=== PATIENT | male | born 1965 | race Hispanic/Latino ===

== ENCOUNTER 2019-01-06 03:12 | Emergency (ER) | payer OTHER ==
[2019-01-06 03:20] VITALS: BMI 25.8
[2019-01-06 03:30] VITALS: RESP 16; TEMP 98.1
[2019-01-06] MEDS ORDERED: Alum-Mag Hydrox-Simethicone Susp (30 mL) PO STA (03:40)
[2019-01-06] MEDS ORDERED: Atrop/Hyosc/Scopal/PB Elixir (120 ml) PO STA (03:40)
[2019-01-06] MEDS ORDERED: Sodium Chloride 0.9% 1,000 ML IV STA (03:40)
--- NOTE | 2019-01-06 03:44 | ED PDOC ---
Arrival/HPI - General Chief Complaint: Abdominal Pain Time Seen by Provider: 01/06/19 03:13 Historian: Patient - History of Present Illness Narrative History of Present Illness (Text): 01/06/19 03:41 53 year old male, allergic to penicillin, with no significant past medical history, presents to the emergency department with lower abdominal pain, since 1 hour. Patient informs he feels pressure in his lower stomach. Patient informs he does feel some chills associated with symptoms. Patient informs he has urinated since symptom onset, but not moved his bowels. Patient also informs of some associated nausea, but no vomiting. Patient denies any fevers, headache, dizziness, chest pain, shortness of breath, cough, diaphoresis, diarrhea, back pain, neck pain, or any other complaint. Time/Duration: 1 hour Symptom Onset: Gradual Symptom Course: Unchanged Quality: Pressure Activities at Onset: Light Context: Home Past Medical History - Provider Review Nursing Documentation Reviewed: Yes - Pulmonary Hx Respiratory Disorders: Yes Hx Asthma: Yes - Gastrointestinal Hx Gastrointestinal Disorders: Yes Other/Comment: inguinal hernia (double) - repaired 2014 - Psychiatric Hx Psychophysiologic Disorder: No Hx Substance Use: No - Surgical History Other/Comment: inguinal hernia repair 2014 - Anesthesia Hx Anesthesia: Yes Family/Social History - Physician Review Nursing Documentation Reviewed: Yes Family/Social History: No Known Family HX Smoking Status: Never Smoked Hx Alcohol Use: No Hx Substance Use: No Allergies/Home Meds Allergies/Adverse Reactions: Allergies Penicillins Allergy (Intermediate, Verified 01/06/19 03:20) URTICARIA Review of Systems - Physician Review All systems were reviewed & negative as marked: Yes - Review of Systems Constitutional: Other (Chills). absent: Fevers Respiratory: absent: SOB, Cough Cardiovascular: absent: Chest Pain Gastrointestinal: Abdominal Pain, Nausea. absent: Diarrhea, Vomiting Musculoskeletal: absent: Back Pain, Neck Pain Neurological: absent: Headache, Dizziness Endocrine: absent: Diaphoresis Physical Exam Vital Signs Reviewed: Yes Vital Signs Temp Pulse Resp BP Pulse Ox 01/06/19 03:22 98.1 F 59 L 16 129/76 100 Temperature: Afebrile Blood Pressure: Normal Pulse: Regular Respiratory Rate: Normal Appearance: Positive for: Well-Appearing, Non-Toxic, Comfortable Pain Distress: None Mental Status: Positive for: Alert and Oriented X 3 - Systems Exam Head: Present: Atraumatic, Normocephalic Pupils: Present: PERRL Extroacular Muscles: Present: EOMI Conjunctiva: Present: Normal Mouth: Present: Moist Mucous Membranes Neck: Present: Normal Range of Motion Respiratory/Chest: Present: Clear to Auscultation, Good Air Exchange. No: Respiratory Distress, Accessory Muscle Use Cardiovascular: Present: Regular Rate and Rhythm, Normal S1, S2. No: Murmurs Abdomen: Present: Tenderness (Suprapubic tenderness, with pressure sensation). No: Distention, Peritoneal Signs Back: Present: Normal Inspection Upper Extremity: Present: Normal Inspection. No: Cyanosis, Edema Lower Extremity: Present: Normal Inspection. No: Edema Neurological: Present: GCS=15, CN II-XII Intact, Speech Normal Skin: Present: Warm, Dry, Normal Color. No: Rashes Psychiatric: Present: Alert, Oriented x 3, Normal Insight, Normal Concentration Medical Decision Making ED Course and Treatment: 01/06/19 03:47 Impression: 53 year old male presents with abdominal pain. Plan: -- CT ABD & Pelvis -- Labs -- Maalox -- Donnaal -- Toradol -- Zofran -- Urine culture -- Urinalysis -- Reassess and disposition Prior Visits: Notes and results from previous visits were reviewed. Progress Notes: 01/06/19 04:56 Labs reviewed with elevated lipase of 424. No leukocytosis noted. Pending CT a/p results. 01/06/19 05:42 UA reveals trace esterases. Ciprofloxacin ordered. Patient reevaluated and feels better. CT a/p reveals moderate constipation and 3.5mm obstructing stone at the UPJ. Patient desires to go home. He is updated on lab and image findings and advised to follow up with a urologist. Opportunity for questions given and answered. Scripts given. He is stable for discharge. - Lab Interpretations Lab Results: 01/06/19 04:00 01/06/19 04:00 Lab Results 01/06/19 04:00: Sodium 140, Potassium 3.8, Chloride 100, Carbon Dioxide 30, Anion Gap 14, BUN 12, Creatinine 1.0, Est GFR ( Amer) > 60, Est GFR (Non- Af Amer) > 60, Random Glucose 174 H, Calcium 9.6, Magnesium 1.8, Total Bilirubin 0.5, AST 25, ALT 20, Alkaline Phosphatase 91, Total Protein 7.1, Albumin 4.1, Globulin 3.0, Albumin/Globulin Ratio 1.4, Lipase 424 H 01/06/19 04:00: PT 12.2, INR 1.10, APTT 30.9 01/06/19 04:00: WBC 9.5, RBC 4.90, Hgb 14.5, Hct 43.0, MCV 87.8, MCH 29.6, MCHC 33.7, RDW 13.3, Plt Count 185, MPV 9.9, Neut % (Auto) 80.9 H, Lymph % (Auto) 13.3 L, [place] % (Auto) 3.7, Eos % (Auto) 1.8, Baso % (Auto) 0.3, Lymph # (Auto) 1.3, [place] # (Auto) 0.4, Eos # (Auto) 0.2, Baso # (Auto) 0.03, Absolute Neuts (auto) 7.68 H I have reviewed the lab results: Yes - RAD Interpretation Narrative RAD Interpretations (Text): 01/06/19 05:58 CT SCAN OF THE ABDOMEN AND PELVIS WITH CONTRAST. CLINICAL HISTORY: Abdominal pain. TECHNIQUE: Multiple axial and coronal CT images were obtained through the abdomen and pelvis after administration of intravenous contrast material. COMMENTS: 3.5 mm obstructing stone of the right ureterovesical junction. Mild right hydroureteronephrosis. Diffuse thickening of the bladder which Secondary to underdistention, mild cystitis versus chronic bladder outlet obstruction changes. Correlation with urinalysis is suggested. Moderate prostatomegaly. Mild fullness of the left collecting system. Uncomplicated colonic diverticulosis. Moderate constipation. Fluid-filled distended stomach, probably gastroparesis. Diffuse thickening and enhancement of the wall of the gallbladder. Sonographic evaluation is suggested. The liver is of uniform attenuation without mass or defect. There is no intra or extrahepatic biliary ductal dilatation. The spleen is normal. The pancreas is of normal contour and attenuation characteristics. There is no evidence of adrenal mass. Both kidneys demonstrate prompt and equal nephrograms. The kidneys are normal in size, shape and configuration. There is no evidence of renal or ureteral mass. No evidence for appendicitis. There is no bowel wall thickening. No evidence for small or large bowel obstruction. There is no evidence of abdominal ascites or lymphadenopathy. There is no evidence of intrinsic or extrinsic bladder mass. There is no pelvic ascites or lymphadenopathy. Images of the lung bases show no evidence of pleural or parenchymal mass. There are no pleural effusions. The bony structures are free of lytic or blastic lesions. IMPRESSION: 3.5 mm obstructing stone of the right ureterovesical junction. Mild right hydroureteronephrosis. Diffuse thickening of the bladder which Secondary to underdistention, mild cystitis versus chronic bladder outlet obstruction changes. Correlation with urinalysis is suggested. Moderate prostatomegaly. Mild fullness of the left collecting system. Uncomplicated colonic diverticulosis. Moderate constipation. Fluid-filled distended stomach, probably gastroparesis. Diffuse thickening and enhancement of the wall of the gallbladder. Sonographic evaluation is suggested. 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 Current Medication Orders: 01/06/19 04:59 Discontinued Medications Al Hydrox/Mg Hydrox/Simethicone (Maalox Plus 30 Ml) 30 ml PO STAT STA Stop: 01/06/19 03:41 Last Admin: 01/06/19 04:00 Dose: 30 ml Belladonna/Phenobarbital ( Elixir) 10 ml PO STAT STA Stop: 01/06/19 03:41 Last Admin: 01/06/19 04:08 Dose: 10 ml Sodium Chloride (Sodium Chloride 0.9%) 1,000 mls @ 1,000 mls/hr IV .Q1H STA Stop: 01/06/19 04:39 Last Admin: 01/06/19 03:55 Dose: 1,000 mls/hr eMAR Start Stop Document 01/06/19 03:55 KV (Rec: 01/06/19 04:00 KV [id number]) Intravenous Solution Start Date 01/06/19 Start Time 03:55 Ketorolac Tromethamine (Toradol) 30 mg IVP STAT STA Stop: 01/06/19 03:41 Last Admin: 01/06/19 04:01 Dose: 30 mg MAR Pain Assessment Document 01/06/19 04:01 KV (Rec: 01/06/19 04:01 KV [id number]) Pain Reassessment Is this a pain reassessment? No Location Left, Right or Bilateral Bilateral Upper or Lower Lower Pain Location Body Site Abdomen Description Description Constant Intensity of Pain at present 7 IVP Administration Document 01/06/19 04:01 KV (Rec: 01/06/19 04:01 KV [id number]) Charges for Administration # of IVP Administrations 1 Ondansetron HCl (Zofran Inj) 4 mg IVP STAT STA Stop: 01/06/19 03:41 Last Admin: 01/06/19 04:01 Dose: 4 mg IVP Administration Document 01/06/19 04:01 KV (Rec: 01/06/19 04:01 KV [id number]) Charges for Administration # of IVP Administrations 1 - Scribe Statement The provider has reviewed the documentation as recorded by the Scribe Zev Robert Provider Scribe Attestation: All medical record entries made by the Scribe were at my direction and personally dictated by me. I have reviewed the chart and agree that the record accurately reflects my personal performance of the history, physical exam, medical decision making, and the department course for this patient. I have also personally directed, reviewed, and agree with the discharge instructions and disposition. Disposition/Present on Arrival - Present on Arrival Any Indicators Present on Arrival: No History of DVT/PE: No History of Uncontrolled Diabetes: No Urinary Catheter: No History of Decub. Ulcer: No History Surgical Site Infection Following: None - Disposition Have Diagnosis and Disposition been Completed?: Yes Diagnosis: Nephrolithiasis, UTI (urinary tract infection) Disposition: HOME/ ROUTINE Disposition Time: 05:47 Patient Plan: Discharge Discharge Instructions (ExitCare): Kidney Stones (DC), Urinary Tract Infection, Adult (DC) Print Language: KOREAN Additional Instructions: All medical record entries made by the Scribe were at my direction and personally dictated by me. I have reviewed the chart and agree that the record accurately reflects my personal performance of the history, physical exam, medical decision making, and the department course for this patient. I have also personally directed, reviewed, and agree with the discharge instructions and disposition. Please follow up with your PCP Try to schedule an appointment with the urologist listed in your discharge paperwork If your symptoms worsen(back/flank/abdominal pain, emesis, fevers), return to the ED Prescriptions: Ciprofloxacin [Cipro] 500 mg PO BID 5 Days #10 tab Naproxen 500 mg PO BID #10 tab Tamsulosin [Flomax] 0.4 mg PO DAILY #3 cap Referrals: Charles Grider MD [Staff Provider] - Follow up with primary Maribell Alvarez MD [Medical Doctor] - Follow up with primary [facility] [place] [Outside] - Follow up with primary Forms: Gift Card Combo ([place])
[2019-01-06 04:09] LABS: BASO # 0.03 K/mm3 (0.0-2.0); BASO % 0.3 % (0.0-3.0); EOS # 0.2 (0.0-0.7); EOS % 1.8 % (1.5-5.0); HEMOGLOBIN 14.5 g/dL (14.0-18.0); LYMPH # 1.3 (1.2-3.4); LYMPH % 13.3 % (22.0-35.0); MEAN CELL VOLUME 87.8 fl (80.0-105.0); MEAN CORPUSCULAR HEMOGLOBIN 29.6 pg (25.0-35.0); MEAN CORPUSCULAR HGB CONC 33.7 g/dl (31.0-37.0); MEAN PLATELET VOLUME 9.9 fl (7.0-11.0); MONO # 0.4 (0.1-0.6); MONO % 3.7 % (1.0-6.0); RBC 4.9 10^6/uL (3.5-6.1); RED CELL DISTRIBUTION WIDTH 13.3 % (11.5-14.5); WHITE BLOOD COUNT 9.5 10^3/uL (4.5-11.0)
[2019-01-06 04:13] LABS: INR 1.1; PARTIAL THROMBOPLASTIN TIME 30.9 Seconds (26.9-38.3); PROTHROMBIN TIME 12.2 SECONDS (9.4-12.5)
[2019-01-06 04:25] LABS: ALB/GLOB RATIO 1.4 (1.1-1.8); ALBUMIN 4.1 g/dL (3.0-4.8); ALT/SGPT 20 U/L (7-56); AST/SGOT 25 U/L (17-59); BLOOD UREA NITROGEN 12 mg/dL (7-21); CALCIUM 9.6 mg/dL (8.4-10.5); GFR NON-AFRICAN AMERICAN > 60; LIPASE 424 U/L (23-300)
[2019-01-06] MEDS ORDERED: Iohexol 350 MG/100 ML VIAL ONE (04:37)
[2019-01-06 05:12] VITALS: BP 103/67; PULSE 90; O2SAT 97
[2019-01-06 05:30] LABS: URINE BILIRUBIN NEGATIVE (NEGATIVE); URINE BLOOD SMALL (NEGATIVE); URINE GLUCOSE (UA) NEGATIVE (NEGATIVE); URINE LEUKOCYTE ESTERASE TRACE Leu/uL (NEGATIVE); URINE PROTEIN NEGATIVE mg/dL (<30 mg/dL); URINE UROBILINOGEN 0.2 E.U./dL (<1 E.U./dL)
[2019-01-06 05:36] LABS: URINE APPEARANCE SL CLOUDY (CLEAR); URINE COLOR YELLOW (YELLOW)
[2019-01-06 05:45] LABS: URINE BACTERIA FEW /hpf; URINE EPITHELIAL CELLS 0 - 2 /hpf (0-5); URINE RBC 0 - 2 /hpf (0-2)
--- NOTE | 2019-01-06 09:44 | CT ---
Date of service: 01/06/2019 PROCEDURE: CT Abdomen and Pelvis with contrast HISTORY: abdominal pain COMPARISON: None. TECHNIQUE: Following the intravenous administration of iodinated contrast material, a CT examination of the abdomen and pelvis was performed from the domes of the diaphragms to the symphysis pubis with reformatted datasets provided in axial, sagittal and coronal planes. Oral contrast was not administered as per referring physician request. Contrast dose: Omnipaque 350, 100 cc Radiation dose: Total exam DLP = 856.51 mGy-cm. This CT exam was performed using one or more of the following dose reduction techniques: Automated exposure control, adjustment of the mA and/or kV according to patient size, and/or use of iterative reconstruction technique. FINDINGS: LOWER THORAX: Unremarkable. LIVER: Mild periportal edema is appreciate which is of uncertain clinical significance and origin. No hepatic mass or definite intrahepatic biliary dilatation identified. GALLBLADDER AND BILE DUCTS: Gallbladder wall is mildly thickened with irregular margins in borderline pericholecystic fluid. No radiodense choledocholithiasis. Common bile duct appears normal caliber. Clinically correlate for potential acalculous cholecystitis. Potential duodenal diverticulum adjacent to the proximal to mid CBD. PANCREAS: Unremarkable. No gross lesion or ductal dilatation. SPLEEN: Unremarkable. ADRENALS: Unremarkable. No mass. KIDNEYS AND URETERS: There is mild right hydronephrosis and limited right hydroureter with a small 3 mm calculus identified either within the lumen of the urinary bladder toward the right or possibly at the right UV junction. This may indicate residual hydronephrosis from expelled calculus or persistent but mild right-sided obstructive uropathy. No radiodense urolithiasis seen the left kidney or obstructive uropathy. No significant perinephric reaction at either kidney. Clinically correlate further. Nephrograms appear symmetric. VASCULATURE: Unremarkable. No aortic aneurysm. No aortic atherosclerotic calcification or mural plaque present. BOWEL: Moderate fecal loading is seen throughout the majority colon and there is extensive sigmoid diverticulosis without diverticulitis. No obstruction. No gross mural thickening. APPENDIX: No CT evidence of appendicitis. PERITONEUM: Trace fluid seen the inferior right pelvis of uncertain origin. Perineum otherwise unremarkable no free intra peritoneal gas collection or peritoneal abscess appreciated. LYMPH NODES: Unremarkable. No enlarged lymph nodes. BLADDER: Unremarkable. REPRODUCTIVE: [id number] prostate gland enlargement. BONES: No acute fracture. OTHER FINDINGS: None. IMPRESSION: 1. Irregular mural thickening the gallbladder without radiodense cholelithiasis or biliary tree dilatation may indicate acalculous cholecystitis. Clinically correlate. No radiodense choledocholithiasis. 2. Mild right hydro nephrosis and hydroureter are suspected either is residual from expelled calculus into the urinary bladder rule lumen or from 3 mm calculus at the right ureterovesical junction with persistent limited hydronephrosis identified. Further clinical correlation advised. 3. Trace fluid inferior right pelvis of uncertain origin. 4. Extensive sigmoid diverticulosis without diverticulitis. 5. [id number] prostate gland enlargement. Preliminary report provided by Dot, 01/06/2019, 5:33 a.m..
== END 2019-01-06 06:01 | disposition home or self-care (01) ==
LOC: ED 03:12 → MERGE 03:12 → ED 06:01
DX: N20.0 Calculus of kidney (principal); N39.0 Urinary tract infection, site not specified
CPT/HCPCS: 74177; 80053; 81001; 83690; 83735; 85025; 85610; 85730; 87086; 96374; 96375; 99284; J1885; J2405; J7030; Q9967